=== PATIENT | male | born 1940 | race Caucasian/White ===

== ENCOUNTER 2017-01-10 06:07 | Day surgery (SDC) | payer MEDICARE, BC ==
[2017-01-09 16:56] VITALS: BMI 30.1
[2017-01-10 07:43] LABS: #Basophils 0.1 thou/uL (0.0-0.2); #Eosinphils 0.4 thou/uL (0.0-0.7); #Lymphocytes 1.9 thou/uL (1.20-3.40); #Monocytes 0.7 thou/uL (0.11-0.59); #Neutrophils 4.6 thou/uL (1.40-6.50); %Basophils 0.9 % (0.0-1.0); %Lymphocytes 24.6 % (21.0-51.0); %Monocytes 8.9 % (0.0-10.0); Hematocrit 43.1 % (42.0-52.0); Mean Platelet Volume 7.8 fL (7.4-10.4); Red Blood Cell (RBC) Count 4.19 mill/uL (4.70-6.10); White Blood Cell (WBC) Count 7.6 thou/uL (4.8-10.8)
[2017-01-10 07:51] LABS: PTT 28.2 SEC (22.9-36.1); Prothrombin Time 13.3 SEC (12.0-14.7)
[2017-01-10 08:04] LABS: ALT (SGPT) 22 U/L (8-55); AST (SGOT) 25 U/L (5-34); Alkaline Phosphatase 40 U/L (40-150); Anion Gap 13 mmol/L (10-20); BUN (Urea Nitrogen) 25 mg/dL (8.4-25.7); Bilirubin, Total 0.6 mg/dL (0.2-1.2); Calc. Creatinine Clearance 71 mL/min (70-130); Calcium 9.7 mg/dL (7.8-10.44); Carbon Dioxide 23 mmol/L (23-31); Chloride 106 mmol/L (98-107); Estimated GFR-MDRD 65; Globulin 2.5 g/dL (2.4-3.5); Protein, Total 6.5 g/dL (5.8-8.1)
[2017-01-10] MEDS ORDERED: Diprivan 20 ML ONE (08:42)
--- NOTE | 2017-01-10 11:18 | ECHO ---
TRANSESOPHAGEAL ECHOCARDIOGRAM: DATE OF PROCEDURE: 01/10/17 INDICATION: Paroxysmal atrial fibrillation. DESCRIPTION OF PROCEDURE: The patient was taken to the PACU. The patient was sedated by anesthesiology. A transesophageal probe was placed in the distal esophagus and stomach. Echocardiographic images were obtained. The transesophageal probe was removed. FINDINGS: 1. Normal left ventricular systolic function. 2. Left atrial enlargement. 3. Normal mitral and aortic valves. 4. Mild mitral regurgitation. 5. Mild tricuspid regurgitation. 6. Occluder device well positioned in the left atrial appendage. A 2.0 mm leak was noted around the device. 7. Atherosclerotic debris in the descending aorta. IMPRESSION: Small, 2.0 mm, leak noted around the left atrial occluder device.
--- NOTE | 2017-01-10 12:31 | DIS ---
Mr. Hendricks underwent transesophageal echo today by Dr. Sawant. He said there is a communication of 2 mm around the Amulet device and spoke with Dr. Alvarado. He recommended not cardioverting the griffin ent at the present time, we will stop aspirin and resume apixaban and Dr. Alvarado said he will arrange f or followup with Dr. Wells.
[2017-01-10] MEDS ORDERED: Propofol 200 MG/20 ML VIAL ONE (13:28)
== END 2017-01-10 10:25 | disposition home or self-care (01) ==
LOC: SDC 06:07
PROVIDERS: ATTEND Internal Medicine Cardiovascular Disease
DX: I48.0 Paroxysmal atrial fibrillation (principal); I10 Essential (primary) hypertension; I25.10 Atherosclerotic heart disease of native coronary artery without angina pectoris; H54.62 Unqualified visual loss, left eye, normal vision right eye; Z95.5 Presence of coronary angioplasty implant and graft; Z96.649 Presence of unspecified artificial hip joint; Z98.890 Other specified postprocedural states
CPT/HCPCS: 36415; 80053; 85025; 85610; 85730; 92960; 93005; 93010; 93312; J2704

== ENCOUNTER 2018-03-03 10:15 | Inpatient (IN) | payer MEDICARE, BC ==
[2018-03-03 10:55] LABS: #Basophils 0.1 thou/uL (0.0-0.2); #Eosinphils 0.2 thou/uL (0.0-0.7); #Lymphocytes 2.4 thou/uL (1.20-3.40); #Monocytes 0.6 thou/uL (0.11-0.59); #Neutrophils 5.8 thou/uL (1.40-6.50); %Basophils 0.9 % (0.0-1.0); %Eosinophils 2.6 % (0.0-10.0); %Lymphocytes 26.1 % (21.0-51.0); %Neutrophils 63.4 % (42.0-75.0); Hemoglobin 17.7 g/dL (14.0-18.0); Mean Corpuscular HGB CONC 32.8 g/dL (32.0-36.0); Mean Corpuscular Hemoglobin 33.8 pg (27.0-31.0); Platelet Count 202 thou/uL (130-400); RBC Distribution Width 11.7 % (11.5-14.5); Red Blood Cell (RBC) Count 5.23 mill/uL (4.70-6.10); White Blood Cell (WBC) Count 9.2 thou/uL (4.8-10.8)
[2018-03-03 11:05] LABS: INR-International Normal Ratio 0.9; PTT 26.9 SEC (22.9-36.1); Prothrombin Time 12.4 SEC (12.0-14.7)
[2018-03-03 11:08] LABS: ALT (SGPT) 26 U/L (8-55); AST (SGOT) 29 U/L (5-34); Albumin 4.3 g/dL (3.4-4.8); Alkaline Phosphatase 56 U/L (40-150); Anion Gap 18 mmol/L (10-20); BUN (Urea Nitrogen) 22 mg/dL (8.4-25.7); Bilirubin, Total 0.5 mg/dL (0.2-1.2); CK (CPK) 149 U/L (30-200); Calc. Creatinine Clearance 0 mL/min (70-130); Calcium 10.7 mg/dL (7.8-10.44); Carbon Dioxide 22 mmol/L (23-31); Chloride 105 mmol/L (98-107); Estimated GFR-MDRD 60; Glucose 96 mg/dL (83-110); Magnesium 2.4 mg/dL (1.6-2.6); Protein, Total 7.3 g/dL (5.8-8.1); Sodium 141 mmol/L (136-145)
--- NOTE | 2018-03-03 11:47 | RAD ---
PORTABLE CHEST: Date: 03/03/18 PROVIDED CLINICAL HISTORY: Weakness. FINDINGS: No comparisons. The cardiac silhouette is within normal limits for portable technique. There is ectasia and tortuosit y of the thoracic aorta with vascular calcification. No focal consolidation, pleural fluid, or pneumo thorax apparent. IMPRESSION: No evidence for an acute cardiopulmonary process. POS: [facility]
--- NOTE | 2018-03-03 11:48 | CT ---
CT BRAIN: Date: 03/03/18 PROVIDED CLINICAL HISTORY: Injury. FINDINGS: Comparison with 03/25/15. The ventricular system appears normal in size and morphology. There is no evidence for intracranial h emorrhage or mass effect. The chronic microvascular ischemic changes involving the cerebral white mat ter appear similar to the prior study. The extracranial soft tissues and osseous structures demonstra te an unremarkable CT appearance. IMPRESSION: No evidence for intracranial hemorrhage or mass effect. POS: [facility]
--- NOTE | 2018-03-03 12:03 | CT ---
CT FACIAL BONES: Date: 03/03/18 PROVIDED CLINICAL HISTORY: Pain status post fall. FINDINGS: Nondisplaced, mildly comminuted nasal bone fracture anteriorly right of midline. No additional fractu re is evident. The paranasal sinuses demonstrate mild mucosal changes. The globes and other orbital c ontents demonstrate no acute abnormality. No additional fracture is evident. IMPRESSION: Nasal bone fracture. POS: [facility]
--- NOTE | 2018-03-03 12:04 | CT ---
CT CERVICAL SPINE: Date: 03/03/18 PROVIDED CLINICAL HISTORY: Injury. FINDINGS: There is no evidence for fracture or traumatic subluxation. Advanced cervical degenerative changes ar e seen with degenerative anterolisthesis of C3 on C4, and C7 on T1. No prevertebral soft tissue swell ing apparent. Visualized lung apices appear clear. Carotid calcifications are seen. IMPRESSION: Advanced degenerative change without evidence for fracture or traumatic subluxation. POS: [facility]
[2018-03-03 12:53] LABS: Bilirubin Negative (Negative); Blood, Urine Moderate (Negative); Clarity CLEAR (Clear); Glucose, Urine (Dipstick) Negative (Negative); Leukocyte Negative (Negative); Nitrite Negative (Negative); Protein, Urine (Dipstick) 30 mg/dL (Neg-Trace); Specific Gravity, Urine 1.018 (1.002-1.036); pH, Urine 5.5 (5.0-9.0)
[2018-03-03 12:55] LABS: Bacteria/HPF None Seen HPF (None Seen); Hyaline Casts/LPF 4-6 HYALINE CAST LPF (0-3 Hyaline); Pathc Cast-AUWi Flag 0.72 (0-2.49); RBC/HPF 0-3 HPF (0-3); Squamous Epithelial 0-3 HPF (0-3); WBC/HPF 0-3 HPF (0-3)
[2018-03-03 14:49] LABS: Troponin I 0.017 ng/mL (< 0.028)
[2018-03-03 16:12] VITALS: BMI 29.5
[2018-03-03] MEDS ORDERED: Ondansetron ODT 4 MG TAB SL PRN (16:26)
[2018-03-03] MEDS ORDERED: Ondansetron PF 4 MG/2 ML Vial IVP PRN (16:26)
[2018-03-03 17:13] LABS: Troponin I 0.031 ng/mL (< 0.028)
[2018-03-03] MEDS ORDERED: TADALAFIL 20 MG PO PRN (18:00)
[2018-03-03] MEDS: Sodium Chloride 0.9% 1,000 ML IV SCH (18:23)
--- NOTE | 2018-03-03 18:58 | ULT ---
BILATERAL CAROTID DUPLEX ULTRASOUND: 03/03/18 HISTORY: CVA. FINDINGS: Damico scale, color flow, doppler evaluation, with spectral analysis of the bilateral carotid arteries is performed with 2D imaging. There is prominent calcified atherosclerotic plaque seen involving the proximal internal carotid gilson magdalena bilaterally as well as the distal left common carotid artery. There is shadowing from the athero sclerotic plaque which does limit evaluation of the proximal right internal carotid artery. Based on peak systolic velocity measurements in ICA/CCA ratios, there is less than 50% maximal stenosis in the bilateral internal carotid arteries. The peak systolic velocity in the right ICA is 77.6 cm/s with a n ICA/CCA ratio of 0.97. Peak systolic velocity in the left ICA is 57 cm/s with an ICA/CCA ratio of 0 .54. Antegrade flow is demonstrated in the vertebral arteries bilaterally. IMPRESSION: No hemodynamically significant stenosis in the bilateral internal carotid arteries. However, there is shadowing atherosclerotic plaque involving the proximal right internal carotid artery which limits e valuation. POS: [facility]
[2018-03-03] MEDS ORDERED: Atorvastatin Calcium 40 MG TAB PO SCH (21:00)
--- NOTE | 2018-03-03 21:49 | HP ---
CHIEF COMPLAINT: Confusion and imbalance. HISTORY OF PRESENT ILLNESS: The patient is a 77-year-old male, who woke up this morning and noticed that his balance is significantly off and he was somewhat confused according to the family. The family noticed that since Thanksgiving, his mental function is kind of off and he has some confusion and this is getting worse. He did not have any numbness, tingling, weakness, headache, or any other symptoms of stroke except for those above mentioned. Apparently, he had a stroke in the past couple of years ago, but he did not go to the doctor for that problem since he said the doctor could not help him much, so he was brought to the emergency room for further evaluation of this problem. PAST MEDICAL HISTORY: 1. 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 2. Hyperlipidemia. 3. Hypertension. ALLERGIES: NONE. CURRENT MEDICATIONS: Please refer to the medications list. PAST SURGICAL HISTORY: 1. Atrial fibrillation, status post ablation. 2. Left hip replacement. 3. Stenting of the descending aorta. FAMILY HISTORY: Father was 65 when he had lung cancer and mother at the age of 88 of old age. SOCIAL HISTORY: He used to smoke, but he quit a long time ago. He drinks alcohol daily, usually one scotch. He denies any illicit drug use. REVIEW OF SYSTEMS: All 14 systems were reviewed and they were negative except for those symptoms mentioned in the HPI. PHYSICAL EXAMINATION: GENERAL: He is not in any distress during my visit. VITAL SIGNS: His blood pressure is 170/104, pulse is 92, temperature is 97.6, respiratory rate is 16, O2 saturation is 96% on room air. HEENT: His head is posttraumatic. He has a broken nose according to the CT of the bony structures of the face. 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 The right eye shows normal response to light. Sclerae are nonicteric. Conjunctivae reddish. Oral mucosa is moist. NECK: Supple. No lymphadenopathy. LUNGS: Clear. HEART: S1, S2, somewhat irregularly irregular. No S3. No S4. ABDOMEN: Soft and nontender. Bowel sounds are present. No organomegaly. EXTREMITIES: No clubbing, cyanosis, or edema. NEUROLOGICAL: He follows my commands. He is not in any distress. There is no any motor or sensory deficits present. Cranial nerves are intact. LABORATORY DATA: Labs showed white count of 9.2, hemoglobin 17.7, hematocrit 53.9. INR 0.9. PT 12.4, APTT 26.9. Sodium 141, potassium 4.0, chloride 105, CO2 22, BUN 22, creatinine 1.18, calcium 10.7. Troponin 0.011, second set 0.017, and the third set is 0.031. The rest of chemistry within normal limits. Urinalysis showed 30 of proteins and moderate amount of blood, 4-[address] showed no evidence of intracranial hemorrhage or mass effect. Chronic microvascular ischemic changes. The cervical spine CT showed advanced degenerative changes without evidence of fracture or traumatic subluxation. Chest x-ray did not show any evidence of acute cardiopulmonary process. Facial bones CT showed nasal bone fracture. EKG showed atrial tachycardia. No acute ischemic changes. IMPRESSION: 1. Acute onset of imbalance, questionable cerebrovascular accident with normal CT so far. The patient received aspirin so far. 2. Uncontrolled hypertension, most likely related to not being able to take his home medications because of the current issue with his admission to the hospital. 3. Atrial tachycardia. We will consult Cardiology. We will do echocardiogram. We will obtain MRI of the brain with and without contrast and carotid ultrasound. PLAN: Plan is to admit him for observation. Condition is fair. Activity; bedrest and bathroom privileges with assistance. IV Hep-Lock. We will repeat urinalysis since he has some hematuria. Current UA. Get neurology consultation and reconcile his home medications as soon as the list is available. For now, we will continue aspirin 325 mg daily and his surrogate decision maker is his son, Stan. Job ID: [id number]
[2018-03-04] MEDS: Sodium Chloride 0.9% 1,000 ML IV SCH (01:16)
[2018-03-04] MEDS: Enoxaparin Sodium 40 MG/0.4 ML SYRINGE SC SCH (09:22)
[2018-03-04] MEDS: Aspirin 325 MG TAB PO SCH (09:22)
[2018-03-04] MEDS: Amlodipine 5 MG TAB PO SCH (09:22)
[2018-03-04] MEDS: Atorvastatin Calcium 40 MG TAB PO SCH (09:22)
[2018-03-04] MEDS: Hydrochlorothiazide 25 MG TAB PO SCH (09:23)
[2018-03-04] MEDS: Tamsulosin HCl 0.4 MG CAP PO SCH (09:24)
--- NOTE | 2018-03-04 11:50 | MRI ---
MRI BRAIN WITH AND WITHOUT IV CONTRAST: Date: 03/04/18 PROVIDED CLINICAL HISTORY: CVA, generalized weakness. FINDINGS: The ventricular system is mildly prominent on the basis of central atrophy. There is generalized cere bral volume loss. Prominent patchy areas of somewhat confluent signal alteration within the periventr icular and subcortical cerebral white matter compatible with changes of chronic microvascular ischemi a. There is no evidence for restricted diffusion to suggest recent infarction. There is no evidence f or intracranial hemorrhage. 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 No additio nal abnormal contrast enhancement is identified. Appropriate flow-voids are seen within the major int racranial vessels. The extracranial soft tissues and calvarial marrow signal demonstrate no significa nt abnormality. IMPRESSION: 1. No evidence for an acute intracranial abnormality. 2. Cerebral volume loss and prominent chronic microvascular ischemic change. POS: [facility]
--- NOTE | 2018-03-04 15:18 | CON ---
DATE OF CONSULTATION: 03/04/2018 CHIEF COMPLAINT: Loss of consciousness. HISTORY OF PRESENT ILLNESS: The patient and his family members gave me his history. The patient does not have a full recollection of the events. He remembers he got out of bed and fell, and he remembers waking up when EMS picked him up. He has had complaints of memory problems at least for the last 2 years. He had loss of vision in the left eye following a stroke in March 2016. The patient has been confused on and off. He had dried blood on his face when the patient's family found him this morning. Face was in a pool of blood. He did not feel right, but he thinks he fell when he tried to get out of bed. His balance was off. He could not keep a conversation, but he could not move. He has had some balance problems for at least a few months now and he had confusion during conversations as well. He was on statins in the past. PAST MEDICAL HISTORY: The patient's previous medical history is positive for atrial fibrillation with ablation in December 2015 and previous history of CVA as stated above with left-sided difficulty with vision problems. Previous medical history also includes hyperlipidemia and hypertension. ALLERGIES: NO KNOWN DRUG ALLERGIES. CURRENT MEDICATIONS: 1. He takes Taras as noted, but he is on aspirin twice daily at home. He also takes. 2. Amlodipine. 3. Atorvastatin. 4. Hydrochlorothiazide. 5. Metoprolol. 6. Pantoprazole. 7. Cialis as needed. 8. Flomax. PREVIOUS SURGICAL HISTORY: Left hip replacement 2013, ablation for atrial fibrillation, December 2015, descending aorta bifurcation stent 2012. FAMILY HISTORY: Father at 65 and he had heart problems. Mother at 88. They are not sure of cause of her . He has multiple siblings. One sister from endometrial cancer. Brother is 68 and has cancer and had liver transplantation. SOCIAL HISTORY: Was a smoker until 1975. He does drink one small nightcap at night. His son noted that the patient has being having more side effects with alcohol recently and he feels drunk quicker. 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 REVIEW OF SYSTEMS: PULMONARY: Negative for shortness of breath. CARDIAC: Negative for chest pain or palpitations, but positive for atrial fibrillation. GENITOURINARY: Positive for increased frequency. NEUROLOGICAL: Positive for memory loss and balance problems and this episode of loss of consciousness. DERMATOLOGIC: Negative. HEMATOLOGIC: Negative for any bleeding diatheses. ENDOCRINE: Negative for any diabetes or hyperglycemia. LABORATORY WORKUP: White count 9.2, hematocrit 53.9, MCV 103.0, hemoglobin is 17.7. His chemistry, sodium 141, potassium 4.0, chloride 105, bicarb 22, BUN 22, creatinine 1.18. His CT scan of the brain was done yesterday on arrival to the hospital, did not show any intracranial hemorrhage or mass effect. He also had cervical spine CT and facial bone CT. Cervical spine CT shows advanced degenerative changes and his facial bone CT shows a nasal bone fracture. MRI of the brain was completed today, which shows no evidence of acute intracranial abnormalities, cerebral volume loss and prominent chronic microvascular ischemic changes. Carotid Dopplers, he has no stenosis in bilateral internal carotid arteries. PHYSICAL EXAMINATION: GENERAL APPEARANCE: Well-built, well-nourished man, who is comfortable in bed. VITAL SIGNS: Blood pressure 143/84, pulse 87, temperature 98.2. CHEST: Clear vesicular breathing. CARDIOVASCULAR: No murmurs. ABDOMEN: Soft. NEUROLOGICAL EXAMINATION: He has higher intellectual functions. He is oriented to time, place, and person. Appropriate conversation and has a good sense of humor. CRANIAL NERVE EXAMINATION: Mild facial asymmetry on the left side with a facial droop, could be old and mild deviation of the tongue to the left. Normal extraocular movements. Pupils are reactive to light bilaterally. Sensory, normal sensation of face bilaterally and tongue midline. Normal elevation of palate. Hearing is normal. Motor, bulk normal, tone normal, strength 5/5 in upper and lower extremities in iliopsoas, hamstrings, quadriceps, ankle dorsiflexion and plantar flexion and deltoid biceps, triceps, wrist extension and flexion and finger extension and flexion and he had mild pronator drift on the right. CEREBELLAR EXAMINATION: He has mild dysmetria in the right lower extremity, and sensory normal to touch and proprioception. Gait not tested. IMPRESSION: The patient is a 77-year-old man who woke up on the floor. He does not have a recollection of how he got there. All he remembers is he got out of bed and he fell, hit his head. His face was in a pool of blood per family when they found him. He was talking. He could not move his extremities and he was brought to the emergency room yesterday. So far, his workup did not show any acute infarct. MRI scan shows chronic microvascular ischemic changes and his risk factor for stroke is atrial fibrillation. His examination currently is normal, although there is some asymmetry with his facial musculature and also mild cerebellar findings, which could be old. At this time, it is unclear what kind of event he had overnight. He may have had orthostatic hypotension, which needs to be looked into as well carefully and whether this was a syncopal event, it is unclear. He may also have had a seizure, but no one witnessed this event. RECOMMENDATIONS: 1. Even if it is a first seizure, we do not need to medicate him for seizure disorder. 2. I will request an EEG. 3. Please consult Cardiology. I will request Neurology to follow up as needed. Please complete his stroke workup including echocardiogram. He will probably need full-dose aspirin from now on for stroke prophylaxis. Job ID: [id number]
--- NOTE | 2018-03-04 18:32 | PDOC.PN ---
- Subjective Encounter Start Date: 03/04/18 Encounter Start Time: 18:30 Subjective: seen and examined with no new complaint - Objective Resuscitation Status - Order Detail: 03/03/18 17:10 Resuscitation Status Routine Resuscitation Status: FULL: Full Resuscitation Vital Signs & Weight: Vital Signs (12 hours) Temp Pulse Resp BP BP BP BP 03/04/18 15:49 97.9 F 88 16 127/76 03/04/18 13:07 156/93 H 166/92 H 03/04/18 11:54 98 F 92 16 134/89 03/04/18 09:22 87 143/84 H 03/04/18 07:51 98.2 F 87 16 143/84 H BP Pulse Ox 03/04/18 15:49 95 03/04/18 13:07 161/93 H 03/04/18 11:54 97 03/04/18 09:22 03/04/18 07:51 95 Weight Weight 198 lb I&O: 03/03/18 03/04/18 03/05/18 06:59 06:59 06:59 Intake Total 1989 600 Output Total 250 Balance 1740 600 Result Diagrams: 03/03/18 10:40 03/03/18 10:40 Phys Exam - Physical Examination Constitutional: NAD HEENT: PERRLA, moist MMs, sclera anicteric, TM's clear, oral pharynx no lesions Neck: no nodes, no JVD, supple, full ROM Respiratory: no wheezing, no rales, no rhonchi, clear to auscultation bilateral Cardiovascular: RRR, no significant murmur, no rub Gastrointestinal: soft, non-tender, no distention, positive bowel sounds Musculoskeletal: pulses present Dx/Plan (1) Hypertension Code(s): I10 - ESSENTIAL (PRIMARY) HYPERTENSION Status: Acute (2) Syncope Code(s): R55 - SYNCOPE AND COLLAPSE Status: Acute (3) Dyslipidemia Code(s): E78.5 - HYPERLIPIDEMIA, UNSPECIFIED Status: Acute - Plan PT/OT, social insurance adviser Appreciate Neurology input -: EEG planned for tommorrow -: Cardiology evaluation of syncope pending * .
[2018-03-05] MEDS: Aspirin 325 MG TAB PO SCH (09:42)
[2018-03-05] MEDS: Amlodipine 5 MG TAB PO SCH (09:42)
[2018-03-05] MEDS: Atorvastatin Calcium 40 MG TAB PO SCH (09:42)
[2018-03-05] MEDS: Hydrochlorothiazide 25 MG TAB PO SCH (09:42)
[2018-03-05] MEDS: Tamsulosin HCl 0.4 MG CAP PO SCH (09:43)
[2018-03-05] MEDS: Enoxaparin Sodium 40 MG/0.4 ML SYRINGE SC SCH (09:45)
--- NOTE | 2018-03-05 14:41 | EEG ---
Referring Physician: Gordo ADEN EEG # [id number] TEST TYPE: ROUTINE PORTABLE INPATIENT REPORT: AN EEG USING THE INTERNATIONAL TEN-TWENTY SYSTEM OF ELECTRODE PLACEMENT WAS PERFORMED. The waking background is a low amplitude 9 hertz alpha frequency. The patient remained awake throughout the study. Photic stimulation was unremarkable. No epileptiform features were seen. IMPRESSION: THIS IS A NORMAL AWAKE EEG. Boom Master: REINALDO Tumor Registrar: EEG.AMISH MARTINEZ
[2018-03-05 15:50] LABS: Anion Gap 14 mmol/L (10-20); BUN (Urea Nitrogen) 21 mg/dL (8.4-25.7); Calc. Creatinine Clearance 62 mL/min (70-130); Carbon Dioxide 22 mmol/L (23-31); Chloride 105 mmol/L (98-107); Estimated GFR-MDRD 58; Glucose 111 mg/dL (83-110); Potassium 3.3 mmol/L (3.5-5.1); Sodium 138 mmol/L (136-145)
--- NOTE | 2018-03-05 17:05 | PDOC.PN ---
- Subjective Encounter Start Date: 03/05/18 Encounter Start Time: 16:58 Patient lying in bed, reports feeling better today. No syncopal like episode. No chest pain or shortness of breath. Still in A fib/flutter on monitor currently rate controlled. - Objective Resuscitation Status - Order Detail: 03/03/18 17:10 Resuscitation Status Routine Resuscitation Status: FULL: Full Resuscitation MAR Reviewed: Yes Vital Signs & Weight: Vital Signs (12 hours) Temp Pulse Pulse Pulse Pulse Pulse Resp 03/05/18 15:13 98.3 F 90 24 H 03/05/18 11:54 97.1 F L 91 20 03/05/18 09:42 80 03/05/18 09:05 89 89 91 91 03/05/18 07:54 98.3 F 80 16 BP BP BP BP BP Pulse Ox 03/05/18 15:13 118/72 96 03/05/18 11:54 156/90 H 95 03/05/18 09:42 03/05/18 09:05 142/92 H 142/95 H 170/116 H 184/97 H 03/05/18 07:54 141/89 H 98 Weight Weight 194 lb 12.8 oz I&O: 03/04/18 03/05/18 03/06/18 06:59 06:59 06:59 Intake Total 1989 2220 360 Output Total 250 950 Balance 1740 1270 360 Result Diagrams: 03/03/18 10:40 03/05/18 14:44 Radiology Reviewed by me: Yes EKG Reviewed by me: Yes Phys Exam - Physical Examination Constitutional: NAD HEENT: PERRLA, moist MMs, oral pharynx no lesions Neck: no nodes, no JVD, supple Respiratory: no wheezing, no rales, no rhonchi, clear to auscultation bilateral Cardiovascular: no significant murmur, no rub A fib/flutter Gastrointestinal: soft, non-tender Musculoskeletal: no edema, pulses present Neurological: non-focal, normal sensation, moves all 4 limbs Lymphatic: no nodes Psychiatric: normal affect, A&O x 3 Skin: no rash, normal turgor, cap refill <2 seconds Dx/Plan (1) A-fib Code(s): I48.91 - UNSPECIFIED ATRIAL FIBRILLATION Status: Acute (2) Dyslipidemia Code(s): E78.5 - HYPERLIPIDEMIA, UNSPECIFIED Status: Acute (3) Hypertension Code(s): I10 - ESSENTIAL (PRIMARY) HYPERTENSION Status: Acute (4) Syncope Code(s): R55 - SYNCOPE AND COLLAPSE Status: Acute - Plan cont current plan of care, DVT proph w/lovenox * Cardiology following, plan for cardioversion tomorrow * Continue medical management * No syncopal like episode, EEG normal * Monitor vital and labs and further management pending cardioversion tomorrow
[2018-03-05] MEDS ORDERED: Potassium Chloride 20 MEQ TAB PO SCH (17:30)
--- NOTE | 2018-03-05 20:14 | CON ---
DATE OF CONSULTATION: 03/05/2018 REFERRING PHYSICIAN: Mallorie Lechuga MD HISTORY OF PRESENT ILLNESS: I am seeing Mr. Hendricks at our [facility] Telemetry Floor as an electrophysiology consult. His problems are: 1. Acute syncopal spell. a. Remote history of syncope in the past as well with LINQ recorder in place. b. LINQ interrogation does not reveal significant tachybrady arrhythmia at the time of the syncopal spell on the episodic atrial fibrillation with RVR is seen up to 180 to 190 beats per minute. c. A 4-second pause noted in the past, not correlating to the time of symptoms. 2. Atrial arrhythmias. a. Status post pulmonary venous central isolation in November 2014. b. Prior history of cardioversion in December 2016. 3. History of stroke. a. Subsequent left eye blindness. b. Status post Watchman device placement in January 2016 and subsequent HUONG in March 2016 with only 2 mm leak now off anticoagulants. 4. Cardiomyopathy. a. Reduced LVEF at 35% to 40% noted on echo on March 04, 2018. Previous LVEF 50% to 55% on echo in March 2015. 5. History of hypertension. ALLERGIES: NONE NOTED. MEDICATIONS: At home included; 1. Tamsulosin. 2. Amlodipine/Lipitor. 3. Omeprazole. 4. Hydrochlorothiazide. 5. Potassium. 6. Aspirin. 7. Tadalafil. 8. Lipitor. 9. Metoprolol. SUBJECTIVE: Mr. Hendricks is here after a syncopal spell. He states he walked to the bathroom at night and he fell down. They were concerned about a new stroke and was transferred to the hospital. He underwent multiple evaluation including MRIs, but no definite evidence of new infarct was found. On the other hand, he was noted to be in irregular atrial rhythm. Currently, he is denying dizziness, loss of consciousness. No stroke-like symptoms. No neurological deficits. No fever, chills, or cough. Denies angina. No bleeding issues are noted. Upon further questioning, it seems that he had issues with balance and somewhat confused also recently. The rest of 12-point system otherwise unremarkable. PAST MEDICAL HISTORY: History of CVA with left-sided eye vision deficits, hyperlipidemia, and hypertension and as noted above. PAST SURGICAL HISTORY: Significant for ablation, left hip replacement, stenting of the descending aorta is noted. SOCIAL HISTORY: The patient denies drug use, but he does drink alcohol daily. Uses scotch. He used to smoke, but quit long time ago. FAMILY HISTORY: Not contributory. Mother at age of 88 of old age. His father had lung cancer and at 65. OBJECTIVE DATA: VITAL SIGNS: Blood pressure is 156/90, heart rate 91, respirations 20, temperature 97 degrees Fahrenheit. Orthostatic blood pressures reveal no significant orthostasis yesterday. Temperature 97.9 degrees Fahrenheit. GENERAL: Alert and oriented man, in no apparent distress. NECK: Supple. Jugular veins not distended. CHEST: Coarse without crackles. HEART: Sounds are irregular. S1 and S2 are variable. No murmur or gallop. ABDOMEN: Benign. Bowel sounds positive. EXTREMITIES: Lower extremities without edema, clubbing, or cyanosis. Pulses are adequate. NEUROLOGIC: The patient is nonfocal. MUSCULOSKELETAL: No joint swelling or deformity. SKIN: Without rash. DATABASE: EKG is reviewed revealing an atrial flutter, atypical with variable AV conduction. We reviewed the LINQ recorder interrogation thus far today, which revealed episodes of tachyarrhythmia up to 190 beats per minute, short episodes but also 4-second pauses at times. Extensively, this is not correlating to the patient's symptoms. LABORATORY DATA: White cell count is 9.2, hemoglobin 17.7, platelet count is 202. Sodium 141, potassium 4, BUN is 22, creatinine 1.18. INR 0.9. ASSESSMENT AND PLAN: Mr. Hendricks is a pleasant 77-year-old man with prior history of atrial arrhythmias, prior ablation and also Watchman device placement. He has remote history of stroke, currently admitted with syncopal spell with also episode of dizziness and some mental confusion is also noted recently. He seems to have persistent atrial arrhythmia. We discussed these findings. The lack of extreme tachy-jaspreet arrhythmia at the time of his index event makes it likely to be more blood pressure than arrhythmia related. On the other hand, he did also have episodes of slow heart beating with no specific symptoms as noted above. Restoring sinus rhythm could be a good consideration with the cardioversion. At this point, he would like to hold off on that and possibly consider it as an outpatient. Atrial arrhythmia/atypical atrial flutter, currently off anticoagulation, hence Watchman device in place. At this point, I would not resume anticoagulation hence risk of fall and history of adequate Watchman placement. Cardiomyopathy, newly found the reason for that unclear. Standard cardiac heart failure therapy as per Dr. Santana and partners are recommended. Should the LVEF improve, but worsens less than 35%, ICD therapy could be a consideration. Thank you again for allowing me to participate in the care of this patient. We will follow with you. Job ID: [id number]
[2018-03-05] MEDS ORDERED: Sodium Chloride 0.9% 10 ML ONE (20:24)
[2018-03-06] MEDS ORDERED: Ondansetron HCl/PF 8 MG in Sodium Chloride 0.9% 50 ML IVPB SCH (09:30)
[2018-03-06] MEDS ORDERED: PROPOFOL 20 ML ONE (12:44)
--- NOTE | 2018-03-06 14:14 | ECHO ---
TRANSESOPHAGEAL ECHOCARDIOGRAM: HISTORY: This is a 77-year-old gentleman with proximal atrial flutter. PROCEDURE: The patient was taken to the PACU. The patient was sedated by anesthesiology and transesophageal pro be was placed to the distal esophagus and stomach. Echocardiographic images were obtained and the tr ansesophageal probe was removed. FINDINGS: 1. Normal left ventricular systolic function. 2. Normal mitral and aortic valves. 3. Mild mitral regurgitation. 4. Mild tricuspid regurgitation. 5. The left atrial occluder device is well positioned with a 0.2 cm leak noted. 6. Atherosclerotic debris in the descending aorta. IMPRESSION: Occluder device with a small 0.2 cm leak noted. POS: [facility]
--- NOTE | 2018-03-06 14:19 | OP ---
ELECTRICAL CARDIOVERSION: HISTORY: This is a 77-year-old gentleman with proximal atrial flutter. DESCRIPTION OF PROCEDURE: The patient was taken to the PACU. The patient was sedated by anesthesiology. The patient was shocked with 100 joules of synchronized electricity. The patient converted to normal sinus rhythm. IMPRESSION: Successful electrocardioversion. JUAN
[2018-03-06] MEDS ORDERED: PROPOFOL 200 MG/20 ML VIAL ONE (15:45)
--- NOTE | 2018-03-06 15:46 | PQF ---
CLINICAL DOCUMENTATION IMPROVEMENT CLARIFICATION FORM: ICD-10 Updated PLEASE DO AN ADDENDUM TO THE PROGRESS NOTE WITH ANY DOCUMENTATION UPDATES OR ADDITIONS AND CARRY THROUGH TO DC SUMMARY. THANK YOU. DATE: 03/06/18 ATTN: NAHUM LEONARDO Please exercise your independent, professional judgment in responding to the clarification form. Clinical indicators are provided on the bottom of this form for your review Please check appropriate box(s) to clarify if the following diagnosis has been ruled in or ruled out: CVA [ ] Ruled in diagnosis [ ] Continue to treat [ ] Resolved [ x ] Ruled out diagnosis [ ] Other diagnosis [ ] Unable to determine In addition, please specify: Present on Admission (POA): [ x ] Yes [ ] No [ ] Unable to determine For continuity of documentation, please document condition throughout progress notes and discharge summary. Thank You. 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 All Rights Reserved ELVIA [email or web address] Office: [phone] [facility]ARE SYSTEMNavin
[2018-03-06] MEDS: Aspirin 325 MG TAB PO SCH (16:30)
[2018-03-06] MEDS: Lisinopril 20 MG TAB PO SCH (16:30)
[2018-03-06] MEDS: Amlodipine 5 MG TAB PO SCH (16:30)
[2018-03-06] MEDS: Atorvastatin Calcium 40 MG TAB PO SCH (16:31)
[2018-03-06] MEDS: Tamsulosin HCl 0.4 MG CAP PO SCH (16:31)
[2018-03-06] MEDS: Enoxaparin Sodium 40 MG/0.4 ML SYRINGE SC SCH (16:32)
[2018-03-06] MEDS: Hydrochlorothiazide 25 MG TAB PO SCH (16:32)
--- NOTE | 2018-03-06 16:51 | PDOC.PN ---
- Subjective Encounter Start Date: 03/06/18 Encounter Start Time: 16:49 Patient lying in bed this morning with son at bedside, he denies chest pain or shortness of breath, but reported some dizziness this morning. He went for cardioversion today, which was successful. Once he returned he had a large wattery BM. - Objective Resuscitation Status - Order Detail: 03/03/18 17:10 Resuscitation Status Routine Resuscitation Status: FULL: Full Resuscitation MAR Reviewed: Yes Vital Signs & Weight: Vital Signs (12 hours) Temp Pulse Resp BP BP BP Pulse Ox 03/06/18 16:30 95 143/84 H 03/06/18 15:55 97.7 F 95 20 129/69 97 03/06/18 05:00 98.2 F 92 20 135/81 95 Weight Weight 194 lb 12.8 oz I&O: 03/05/18 03/06/18 03/07/18 06:59 06:59 06:59 Intake Total 2220 1120 Output Total 950 Balance 1270 1120 Result Diagrams: 03/03/18 10:40 03/05/18 14:44 Radiology Reviewed by me: Yes Phys Exam - Physical Examination Constitutional: NAD HEENT: PERRLA, moist MMs, oral pharynx no lesions Neck: no nodes, no JVD, supple Respiratory: no wheezing, no rales, no rhonchi, clear to auscultation bilateral Cardiovascular: RRR, no significant murmur, no rub Gastrointestinal: soft, non-tender, positive bowel sounds Musculoskeletal: no edema, pulses present Neurological: non-focal, normal sensation, moves all 4 limbs Lymphatic: no nodes Psychiatric: normal affect, A&O x 3 Skin: no rash, normal turgor, cap refill <2 seconds Dx/Plan (1) A-fib Code(s): I48.91 - UNSPECIFIED ATRIAL FIBRILLATION Status: Acute (2) Dyslipidemia Code(s): E78.5 - HYPERLIPIDEMIA, UNSPECIFIED Status: Acute (3) Hypertension Code(s): I10 - ESSENTIAL (PRIMARY) HYPERTENSION Status: Acute (4) Syncope Code(s): R55 - SYNCOPE AND COLLAPSE Status: Acute - Plan cont current plan of care, plan discussed w/ family, DVT proph w/lovenox * Continue medical management * Patient had successful cardioversion * Await stool culture to rule out c diff * Continue other home medications
[2018-03-07] MEDS ORDERED: Loperamide HCl 2 MG CAP PO SCH (00:30)
[2018-03-07] MEDS: Lisinopril 20 MG TAB PO SCH (08:57)
[2018-03-07] MEDS: Atorvastatin Calcium 40 MG TAB PO SCH (09:32)
[2018-03-07] MEDS: Enoxaparin Sodium 40 MG/0.4 ML SYRINGE SC SCH (09:32)
[2018-03-07] MEDS: Aspirin 325 MG TAB PO SCH (09:32)
[2018-03-07] MEDS: Amlodipine 5 MG TAB PO SCH (09:32)
[2018-03-07] MEDS: Tamsulosin HCl 0.4 MG CAP PO SCH (09:33)
--- NOTE | 2018-03-07 09:48 | DIS ---
DATE OF ADMISSION: 03/03/2018 DATE OF DISCHARGE: 03/07/2018 PRIMARY CARE PROVIDER: Dr. Gume Godoy. FINAL DIAGNOSES: 1. Syncope. 2. Atypical atrial flutter. 3. Hypertension. 4. Post cardioversion. 5. Dyslipidemia. DISCHARGE MEDICATIONS: 1. Omeprazole 20 mg a day. 2. Amlodipine and atorvastatin 5/40 one tablet a day. 3. Hydrochlorothiazide 25 mg a day. 4. Flomax 0.4 mg daily. 5. Metoprolol 25 mg twice a day. 6. Lisinopril 20 mg a day. 7. Aspirin 325 mg a day. ALLERGIES: NO KNOWN DRUG ALLERGIES. PENDING AT THE TIME OF DISCHARGE: Nothing. CODE STATUS: Full. DIET: Heart healthy. HOSPITAL COURSE: The patient was admitted to the [facility] through [facility] with a history of confusion and imbalance. He was brought to the emergency room for evaluation. His brain CT, no evidence for acute intracranial event. Carotid Doppler showed no stenosis. Consultation was obtained with Neurology, Dr. Mallorie Lechuga. Echocardiogram was done, which showed an EF of about 35% to 40%. EEG was done, which showed no seizure activity. The patient was seen in consultation by Dr. Palmer Alvarado for atrial tachycardia and atrial flutter. The patient was taken to the labor relations manager by Dr. Chico Sawant. Transesophageal echocardiogram revealed a left atrial occluder device well positioned. The patient underwent DC cardioversion into regular sinus rhythm. The patient is currently in regular sinus rhythm. The patient had an episode of profound diarrhea yesterday. The laboratory workup for that reveals no abnormality on stool culture, Campylobacter assay or C diff. The patient is in regular sinus rhythm. Cardio respiratory exam is normal. He is being discharged for followup with his PCP in 1 week and to have followup arranged with Dr. Sawant. MEDICATIONS: Medications added during his hospital stay; 1. Aspirin 325 mg a day. 2. Lisinopril. 3. Metoprolol. LABORATORY DATA: Current laboratory on 03/05, his lytes are balanced. On admission, CBC showed a mild macrocytosis, otherwise unremarkable. Job ID: [id number]
--- NOTE | 2018-03-07 15:06 | PDOC.PN ---
- Subjective Encounter Start Date: 03/07/18 Encounter Start Time: 15:05 Subjective: minimal diarrhea - Objective Resuscitation Status - Order Detail: 03/03/18 17:10 Resuscitation Status Routine Resuscitation Status: FULL: Full Resuscitation MAR Reviewed: Yes Vital Signs & Weight: Vital Signs (12 hours) Temp Pulse Resp BP BP BP Pulse Ox 03/07/18 11:41 98.4 F 72 20 94/50 L 95 03/07/18 09:32 77 98/54 L 03/07/18 08:57 98/54 L 03/07/18 08:50 97 03/07/18 07:33 98.3 F 70 18 96/54 L 97 03/07/18 03:44 98.3 F 80 18 92/52 L 93 L Weight Weight 194 lb 12.8 oz I&O: 03/06/18 03/07/18 03/08/18 06:59 06:59 06:59 Intake Total 1120 1875 240 Balance 1120 1875 240 Result Diagrams: 03/03/18 10:40 03/05/18 14:44 Phys Exam - Physical Examination Neck: no JVD Respiratory: clear to auscultation bilateral Cardiovascular: RRR, no significant murmur Gastrointestinal: soft, non-tender, positive bowel sounds Musculoskeletal: no edema Dx/Plan (1) Atrial flutter Code(s): I48.92 - UNSPECIFIED ATRIAL FLUTTER Status: Acute Qualifiers: Atrial flutter type: atypical Qualified Code(s): I48.4 - Atypical atrial flutter (2) Dyslipidemia Code(s): E78.5 - HYPERLIPIDEMIA, UNSPECIFIED Status: Suspected (3) Hypertension Code(s): I10 - ESSENTIAL (PRIMARY) HYPERTENSION Status: Chronic Qualifiers: Hypertension type: essential hypertension Qualified Code(s): I10 - Essential (primary) hypertension (4) Syncope Code(s): R55 - SYNCOPE AND COLLAPSE Status: Acute Qualifiers: Encounter type: initial encounter - Plan post cardioversion -: BP under 100 sys, HCTZ held, hold amlodipine * .
--- NOTE | 2018-03-07 15:59 | PDOC.CTH ---
Cardiology Progress Note - Subjective EP PROGRESS NOTE: 03/07/18 Seen as followup for atrial arrhythmias, cardiomyopathy, and bradycardia. Feeling well today/does not voice any concerns or complaints. - Objective Vital Signs Temp Pulse Resp BP BP BP Pulse Ox 03/07/18 15:06 97.1 F L 65 12 84/52 L 95 03/07/18 11:41 98.4 F 72 20 94/50 L 95 03/07/18 09:32 77 98/54 L 03/07/18 08:57 98/54 L 03/07/18 08:50 97 03/07/18 07:33 98.3 F 70 18 96/54 L 97 Weight 194 lb 12.8 oz 03/06/18 03/07/18 03/08/18 06:59 06:59 06:59 Intake Total 1120 1875 240 Balance 1120 1875 240 - Physical Examination General/Neuro: NAD, other: (alert, oriented to person and place. ) Neck: carotid US brisk, no JVD present Lungs: CTA, unlabored respirations Heart: PMI normal, RRR Abdomen: NT/ND, soft - Labs Result Diagrams: 03/03/18 10:40 03/05/18 14:44 Troponin/CKMB Troponin I 0.031 ng/mL (< 0.028) H 03/03/18 16:40 - Assessment/Plan 1. Syncope and collapse -no arrhythmias correlated with syncopal episodes. Likely orthostatic issue 2. Atrial arrhythmias -No need for OAC as watchman has been placed. -Increase betablocker therapy as tolerated. 3. Cardiomyopathy -newly diagnosed. etiology unknown - medical management x 3 months then re-evaluate EF. if remains <35%, consider ICD 4. Hypotension
--- NOTE | 2018-03-07 16:26 | PDOC.EVN ---
Event Note - Event Note Event Note: BP still 92 sys supine. HCTZ and amlodipine DCed. will give D5 1/2n at 125 ml/ hr
[2018-03-07] MEDS: Dextrose 5 %-0.45 % NaCl 1,000 ML IV SCH (17:01)
[2018-03-08] MEDS: Dextrose 5 %-0.45 % NaCl 1,000 ML IV SCH ×2 (00:52→09:10)
[2018-03-08 08:08] VITALS: BP 102/57; TEMP 98.1
[2018-03-08] MEDS: Aspirin 325 MG TAB PO SCH (10:06)
[2018-03-08] MEDS: Tamsulosin HCl 0.4 MG CAP PO SCH (10:06)
[2018-03-08] MEDS: Enoxaparin Sodium 40 MG/0.4 ML SYRINGE SC SCH (10:07)
--- NOTE | 2018-03-08 10:43 | DIS ---
DATE OF ADMISSION: 03/03/2018 DATE OF DISCHARGE: TRANSFER OF CARE: ADDENDUM: This is an addendum to the discharge summary dictated yesterday. Mr. Hendricks's discharge was delayed one day due to low blood pressure. His amlodipine was discontinued. He is being discharged on the same medicines as listed before, except with the discontinuation of the amlodipine/Lipitor combination. A prescription has been written for Lipitor 40. At the time of discharge, his vital signs are stable. He is alert and oriented. Physical examination is stable. He is to see Dr. Gume Godoy in 7 days, for followup, Chico Sawant, Cardiology in 2 to 3 weeks. The remainder of the discharge summary is as dictated. Job ID: [id number]
--- NOTE | 2018-03-10 21:33 | EKG ---
Test Reason : STROKE-LIKE SYMPTOMS Blood Pressure : / mmHG Vent. Rate : 072 BPM Atrial Rate : 089 BPM P-R Int : 000 ms QRS Dur : 104 ms QT Int : 410 ms P-R-T Axes : 000 -23 -07 degrees QTc Int : 448 ms Controlled Atrial fibrillation vs rate ? Undetermined rhythm Otherwise normal ECG Confirmed by BAUDILIO GARCIA DO ([id number]), film or videotape editor LINDA THOMAS ([id number]) on 03/10/2018 9:32:58 PM Referred By: Confirmed By:BAUDILIO GARCIA DO
== END 2018-03-08 10:45 | disposition home or self-care (01) | DRG 310 ==
LOC: ERS 10:15 → 2SW 16:02 → OBSVTOIN 19:25
PROVIDERS: ADMIT Internal Medicine; ATTEND Internal Medicine
PROC: 5A2204Z Restoration of Cardiac Rhythm, Single (ICD-10-PCS; principal; 2018-03-06)
DX: I48.92 Unspecified atrial flutter (principal); E78.5 Hyperlipidemia, unspecified; I10 Essential (primary) hypertension; R55 Syncope and collapse
CPT/HCPCS: 36415; 36416; 70450; 70486; 70553; 71045; 72125; 80048; 80053; 81003; 81015; 82550; 83735; 84484; 85025; 85610; 85730; 87045; 87046; 87324; 87449; 87899; 92960; 93005; 93010; 93306; 93312; 93880; 95816; 95819; J1650; J2405; J2704; J7050

== ENCOUNTER 2019-10-13 15:58 | Emergency (ER) | payer MEDICARE, BC | END 2019-10-13 17:33 | disposition home or self-care (01) | LOC: ERS 15:58 | DX: R09.89 Other specified symptoms and signs involving the circulatory and respiratory systems (principal); F03.90 Unspecified dementia, unspecified severity, without behavioral disturbance, psychotic disturbance, mood disturbance, and anxiety; Z86.73 Personal history of transient ischemic attack (TIA), and cerebral infarction without residual deficits; E78.5 Hyperlipidemia, unspecified; E78.00 Pure hypercholesterolemia, unspecified; I10 Essential (primary) hypertension; Z79.82 Long term (current) use of aspirin; Z79.899 Other long term (current) drug therapy | CPT/HCPCS: 99283 ==

== ENCOUNTER 2019-11-12 10:49 | Outpatient (CLI) | payer MEDICARE, BC ==
--- NOTE | 2019-11-12 14:09 | RAD ---
Esophagram air contrast HISTORY: Dysphagia. FINDINGS: Air contrast and single column barium evaluation was performed. There is normal anatomic ap pearance of the esophagus. No significant hiatal hernia visualized fluoroscopically. Upon administration of a 12 mm barium tablet, there was holdup at the lower esophageal sphincter for approximately 15 minutes as the tablet dissolved. During that time, there was mild backup of contrast above the tablet. Prominent nonpropulsive tertiary type contractions. Diminished primary and secondary peristalsis. With the patient supine, contrast entered the esophagus along its length. IMPRESSION : Narrowing/stricture at the lower esophageal sphincter, resulting in significant holdup of a 12 mm bar ium tablet. Moderate amount of gastroesophageal reflux. Severe presbyesophagus.
== END 2019-11-12 10:50 | disposition home or self-care (01) ==
LOC: RAD 10:49
PROVIDERS: ATTEND Physician Assistant Medical
DX: R13.10 Dysphagia, unspecified (principal); K21.9 Gastro-esophageal reflux disease without esophagitis; K22.8 Other specified diseases of esophagus; K22.2 Esophageal obstruction
CPT/HCPCS: 74220

== ENCOUNTER 2020-02-03 07:49 | Emergency (ER) | payer MEDICARE, BC ==
--- NOTE | 2020-02-03 08:38 | CT ---
Head CT without contrast 02/03/2020: COMPARISON: 03/25/2015 HISTORY: Injury, trauma, pain, altered mental status TECHNIQUE: Axial CT imaging at 5 mm intervals from vertex through skull base without contrast FINDINGS: The visualized paranasal sinuses and mastoid air cells are well-aerated. There is no displa michelle calvarial fracture. No intracranial hemorrhage, midline shift, or mass effect is noted. There is stable significant diffuse cerebral volume loss and there is stable periventricular, deep, a nd subcortical white matter hypodensity, evidence of small vessel disease. IMPRESSION: Cerebral volume loss and small vessel disease. No intracranial hemorrhage or displaced ca lvarial fracture.
[2020-02-03] MEDS ORDERED: Lidocaine 1% w/Epinephrine 1:100K 20 ML VIAL ONE (08:40)
[2020-02-03] MEDS ORDERED: Boostrix 0.5 ML (Tdap) VIAL ONE (08:47)
--- NOTE | 2020-02-03 09:15 | RAD ---
2 views of the right forearm: 02/03/2020 COMPARISON: None HISTORY: Fall, trauma, pain FINDINGS: There appears to be a significant soft tissue injury involving the proximal forearm just di stal to the level of the elbow, best seen on image 2 of 2. No radiopaque foreign body. No acute fracture or evidence of dislocation. There is radiocarpal joint space narrowing. IMPRESSION: No acute fracture or dislocation.
[2020-02-03] MEDS ORDERED: HYDROcodone/Acetaminophen 10/325 mg Tablet ONE (12:07)
== END 2020-02-03 15:35 | disposition home or self-care (01) ==
LOC: ERS 07:49
DX: S51.811A Laceration without foreign body of right forearm, initial encounter (principal); W19.XXXA Unspecified fall, initial encounter; Z79.899 Other long term (current) drug therapy; Z79.82 Long term (current) use of aspirin; E78.5 Hyperlipidemia, unspecified; E78.00 Pure hypercholesterolemia, unspecified; I10 Essential (primary) hypertension
CPT/HCPCS: 12004; 70450; 90471; 90715; 93005